=== PATIENT | female | born 1970 | race Caucasian/White ===

== ENCOUNTER 2024-09-06 11:06 | Emergency (ER) | payer OTHER ==
[2024-09-06 11:13] VITALS: BP 153/96; PULSE 77; RESP 18; TEMP 97.6; BMI 29.5
[2024-09-06] MEDS ORDERED: ACETAMINOPHEN 325 MG TABLET (FP) ONE (12:36)
[2024-09-06] MEDS ORDERED: CYCLOBENZAPRINE HCL 5 MG TABLET ONE (12:36)
[2024-09-06] MEDS ORDERED: LIDOCAINE 4% PATCH TP ONE (12:36)
[2024-09-06] MEDS: ACETAMINOPHEN 500 MG TABLET (FP) PO ONE (12:49)
[2024-09-06] MEDS: LIDOCAINE 4% PATCH TP ONE (12:49)
[2024-09-06] MEDS: CYCLOBENZAPRINE HCL 5 MG TABLET PO ONE (14:03)
[2024-09-06] MEDS ORDERED: KETOROLAC TROMETHAMINE 30 MG/1 ML VIAL ONE (15:43)
[2024-09-06] MEDS: KETOROLAC TROMETHAMINE 30 MG/1 ML VIAL IM ONE (15:51)
[2024-09-06] MEDS ORDERED: LIDOCAINE PATCH REMOVAL MC ONE (22:00)
== END 2024-09-06 16:27 | disposition home or self-care (01) ==
LOC: JER 11:06
PROC: 3E0133Z Introduction of Anti-inflammatory into Subcutaneous Tissue, Percutaneous Approach (ICD-10-PCS; principal; 2024-09-06)
DX: M54.2 Cervicalgia (principal); G89.29 Other chronic pain; R29.898 Other symptoms and signs involving the musculoskeletal system; R20.0 Anesthesia of skin; R20.2 Paresthesia of skin
CPT/HCPCS: 70450-TC; 72125-TC; 84703; 99284-25

== ENCOUNTER 2024-10-25 04:36 | Day surgery (SDC) | payer OTHER ==
[2024-10-22 16:00] VITALS: BMI 29.2
[2024-10-25] MEDS ORDERED: BUPIVACAINE HCL/PF 0.5% (5MG/ML) 10 ML VIAL ONE (07:31)
[2024-10-25] MEDS ORDERED: LIDOCAINE HCL/PF 1% SDV 5ML VIAL ONE (07:31)
[2024-10-25] MEDS ORDERED: ACETAMINOPHEN 500 MG TABLET (FP) PO PRN (08:52)
[2024-10-25] MEDS: BUPIVACAINE HCL/PF 0.5% (5MG/ML) 10 ML VIAL IJ ONE ×2 (16:16)
[2024-10-25 17:04] VITALS: BP 137/89; PULSE 69; RESP 20; TEMP 97.8
== END 2024-10-25 17:05 | disposition home or self-care (01) ==
LOC: JASU-SURG 04:36
PROVIDERS: ATTEND Pain Medicine Pain Medicine
PROC: 3E0T33Z Introduction of Anti-inflammatory into Peripheral Nerves and Plexi, Percutaneous Approach (ICD-10-PCS; 2024-10-25)
PROC: 3E0T3BZ Introduction of Anesthetic Agent into Peripheral Nerves and Plexi, Percutaneous Approach (ICD-10-PCS; principal; 2024-10-25 15:00)
DX: M47.812 Spondylosis without myelopathy or radiculopathy, cervical region (principal)
CPT/HCPCS: 76000-TC-FY; 81025

== ENCOUNTER 2024-11-30 03:52 | Day surgery (SDC) | payer OTHER ==
[2024-11-30] MEDS ORDERED: ACETAMINOPHEN 500 MG TABLET (FP) PO PRN (08:52)
[2024-11-30 11:51] VITALS: RESP 18; TEMP 97.5; BMI 29.2
[2024-11-30] MEDS: BUPIVACAINE HCL/PF 0.5% (5MG/ML) 10 ML VIAL IJ ONE (13:26)
[2024-11-30 14:35] VITALS: BP 117/88; PULSE 87
== END 2024-11-30 14:50 | disposition home or self-care (01) ==
LOC: JASU-SURG 03:52
PROVIDERS: ATTEND Pain Medicine Pain Medicine
PROC: 3E0T33Z Introduction of Anti-inflammatory into Peripheral Nerves and Plexi, Percutaneous Approach (ICD-10-PCS; 2024-11-30)
PROC: 3E0T3BZ Introduction of Anesthetic Agent into Peripheral Nerves and Plexi, Percutaneous Approach (ICD-10-PCS; principal; 2024-11-30 11:15)
DX: M47.812 Spondylosis without myelopathy or radiculopathy, cervical region (principal)
CPT/HCPCS: 76000-TC-FY

== ENCOUNTER 2025-01-03 04:03 | Day surgery (SDC) | payer OTHER ==
[2025-01-01 10:06] VITALS: BMI 29.2
[2025-01-03] MEDS ORDERED: ACETAMINOPHEN 500 MG TABLET (FP) PO PRN (09:13)
[2025-01-03 13:08] VITALS: RESP 18
[2025-01-03] MEDS: LIDOCAINE HCL 1% PRESERVATIVE FREE - 30ML VIAL IJ ONE (13:30)
[2025-01-03] MEDS: LIDOCAINE HCL/PF 2% SDV 5ML VIAL INF ONE (13:30)
[2025-01-03] MEDS: BUPIVACAINE HCL/PF 0.5% (5MG/ML) 10 ML VIAL IJ ONE ×2 (13:45)
[2025-01-03] MEDS: DEXAMETHASONE SOD PHOSPHATE 10 MG/1 ML VIAL IVPUSH ONE ×2 (13:48)
[2025-01-03 15:58] VITALS: BP 136/91; PULSE 81; TEMP 97.1
== END 2025-01-03 15:18 | disposition home or self-care (01) ==
LOC: JASU-SURG 04:03
PROVIDERS: ATTEND Pain Medicine Pain Medicine
PROC: 015B3ZZ Destruction of Lumbar Nerve, Percutaneous Approach (ICD-10-PCS; principal; 2025-01-03 12:45)
DX: M47.812 Spondylosis without myelopathy or radiculopathy, cervical region (principal)
CPT/HCPCS: 76000-TC-FY; J1100